=== PATIENT | male | born 1995 ===

== ENCOUNTER 2024-06-13 11:19 | Emergency (ER) | payer OTHER, SELFPAY ==
--- NOTE | 2024-06-13 11:34 | ED.GENADULT ---
HPI - General Adult General Chief complaint: Skin/Abscess/Foreign Body Stated complaint: hand lac Time Seen by Provider: 06/13/24 11:34 Source: patient Mode of arrival: ambulatory Limitations: no limitations History of Present Illness ED Provider: CHRISTIN Arellano HPI narrative: 28 year old M with no pmh presenting for a L hand laceration via scissors, tetanus shot in past 2 years. Right hand dominant. No numbness, tingling, severe pain, fevers or chills. Related Data Allergies Allergy/AdvReac Type Severity Reaction Status Date / Time No Known Allergies Allergy Verified 06/13/24 11:39 Review of Systems Review of Systems: Yes all other systems are reviewed and are negative PMFSH Past Medical History Attestation statement: The following information was validated with the patient. Source: old records reviewed and nursing notes reviewed Physical Exam ED Vital Signs: Vital Signs - 24 hr 06/13/24 11:35 Temperature 98.6 F Pulse Rate 83 Respiratory Rate 16 Blood Pressure 128/85 Pulse Oximetry 98 Oxygen Delivery Method Room Air BMI result Body Mass Index 25.1 vss Appearance: Alert.? Oriented X3.? No acute cardiopulmonary distress distress.? Head: Normocephalic, atraumatic, no step-offs or deformities Neck: Normal inspection.? Neck supple.? CVS: Pulses normal.? Respiratory: No respiratory distress.? Skin: ? Normal skin color. + 2 cm linear lac to left theanar aspect of hand. Normal distal sensation b/l. Normal cap refil. 2+ radial pulses equal and b/l. Extremities: 5/5 strength to bilateral upper and lower extremities Neuro: Oriented X 3.? No motor deficit.? No sensory deficit. Course Course Course Narrative: This is an RME done by CHRISTIN Arellano: Additional HPI, ROS, PE not included below will be deferred to primary provider. 28 year old M with no pmh presenting for a L hand laceration via scissors, tetanus shot in past 2 years. Right hand dominant. No numbness, tingling, severe pain, fevers or chills. Appearance: Alert.? Oriented X3.? No acute cardiopulmonary distress distress.? Head: Normocephalic, atraumatic, no step-offs or deformities Neck: Normal inspection.? Neck supple.? CVS: Pulses normal.? Respiratory: No respiratory distress.? Skin: ? Normal skin color. + 2 cm linear lac to left theanar aspect of hand. Normal distal sensation b/l. Normal cap refil. 2+ radial pulses equal and b/l. Extremities: 5/5 strength to bilateral upper and lower extremities Neuro: Oriented X 3.? No motor deficit.? No sensory deficit. Reevaluation(s) Reevaluation #1: Educated patient on diagnosis and treatment plan, answered all question, patient verbalizes understanding. At this time patient will be discharged home, advised to return with new or worsening symptoms. Educated on worrisome signs and symptoms and when to return. At this time I feel comfortable discharge home. Time: 11:47 Medical Decision Making Medical Decision Making MDM Narrative: 28 year old male presents w/ lac to left hand cut himself at work w/ electrical scissors at 1100 am PE linear cut to palmar thenar emisis of L hand Plan- glue no need for sutures ( only epidermis involved) Likely simple lac, no fb. No signs of NV compromise, threat to limb. Plan- dc from triage Differential Diagnosis Differential Diagnoses: The differential diagnosis associated with the presentation includes Likely simple lac, no fb. No signs of NV compromise, threat to limb. Admission/Observation Consideration of admission/observation: Escalation of care including admission/observation considered Discharge Plan Discharge Clinical Impression: Laceration of hand, Work related injury Patient Disposition: Home, Self-Care Instructions: Laceration (ED), Skin Adhesive Care (ED) Additional Instructions: Take your medications as prescribed. If you were prescribed antibiotics today, it is important that you take your medication to their entirety, do not skip any doses, do not finish them early. Follow-up with your primary care provider this week. Return to the emergency department with new or worsening symptoms. In case of emergency call 911 Referrals: [facility] [Primary Care Provider] - 2 days
[2024-06-13 11:35] VITALS: BP 128/85; PULSE 83; RESP 16; TEMP 37; O2SAT 98; BMI 25.1
[2024-06-13 11:47] VITALS: BP 128/85; PULSE 83; RESP 16; TEMP 37; O2SAT 98
== END 2024-06-13 11:49 | disposition home or self-care (01) ==
LOC: HO.ED 11:49
PROVIDERS: Emergency Provider Emergency Medicine
DX: S61.412A Laceration without foreign body of left hand, initial encounter (principal); W27.2XXA Contact with scissors, initial encounter; Y93.89 Activity, other specified; Y92.89 Other specified places as the place of occurrence of the external cause; Y99.0 Civilian activity done for income or pay
CPT/HCPCS: 99282